=== PATIENT | female | born 1955 | race Caucasian/White ===

== ENCOUNTER 2017-10-23 17:04 | Observation (INO) | payer MEDICARE, OTHER ==
[~2017-10-23] VITALS: Ht 162.6 cm; Wt 50.0 kg
[2017-10-23 17:07] VITALS: BP 130/73; PULSE 81; RESP 13; TEMP 98.4; O2SAT 97
[2017-10-23 17:43] LABS: AUTOMATED NEUTROPHIL # 4.1 TH/MM3 (1.8-7.7); BASOPHIL % 0.6 % (0.0-2.0); EOSINOPHIL # 0.1 TH/MM3 (0-0.4); EOSINOPHIL % 2.1 % (0.0-4.0); HEMATOCRIT 32.3 % (35.0-46.0); HEMOGLOBIN 10.6 GM/DL (11.6-15.3); LYMPH % 18.9 % (9.0-44.0); LYMPHOCYTE # 1.1 TH/MM3 (1.0-4.8); MEAN CELL VOLUME 86.7 FL (80.0-100.0); MEAN CORPUSCULAR HEMOGLOBIN 28.4 PG (27.0-34.0); MEAN CORPUSCULAR HGB CONC 32.7 % (32.0-36.0); MEAN PLATELET VOLUME 9.5 FL (7.0-11.0); MONO % 9.9 % (0.0-8.0); MONOCYTE # 0.6 TH/MM3 (0-0.9); NEUT % 68.5 % (16.0-70.0); PLATELET COUNT 161 TH/MM3 (150-450); RED BLOOD COUNT 3.72 MIL/MM3 (4.00-5.30); RED CELL DISTRIBUTION WIDTH 16.1 % (11.6-17.2)
[2017-10-23 17:57] LABS: PROTHROMBIN TIME - PATIENT 10.4 SEC (9.8-11.6)
[2017-10-23 18:02] LABS: ALBUMIN 3.3 GM/DL (3.4-5.0); ALT (GPT) 33 U/L (10-53); AST (GOT) 24 U/L (15-37); BICARBONATE 25.7 MEQ/L (21.0-32.0); BLOOD UREA NITROGEN 22 MG/DL (7-18); CALCIUM 9.4 MG/DL (8.5-10.1); CHLORIDE 94 MEQ/L (98-107); CREATININE 0.64 MG/DL (0.50-1.00); GLOMERULAR FILTRATION RATE 94 ML/MIN (>89); GLUCOSE,RANDOM 99 MG/DL (74-106); MAGNESIUM 1.9 MG/DL (1.5-2.5); SODIUM (NA) 128 MEQ/L (136-145)
[2017-10-23 18:06] LABS: ALKALINE PHOSPHATASE 129 U/L (45-117); TOTAL BILIRUBIN ADULT 0.2 MG/DL (0.2-1.0); TOTAL PROTEIN 7.4 GM/DL (6.4-8.2); TROPONIN I LESS THAN 0.02 NG/ML (0.02-0.05)
[2017-10-23] MEDS ORDERED: TRAZ1TAB14 G-TUBE (18:10)
[2017-10-23] MEDS ORDERED: ZOFR4TAB PO (18:10)
[2017-10-23] MEDS ORDERED: LACT10SO5 PO (18:10)
[2017-10-23] MEDS ORDERED: NOVOLOGP2 SQ (18:10)
[2017-10-23] MEDS ORDERED: QUES4POW PO (18:10)
[2017-10-23] MEDS ORDERED: ROPI.5 PO (18:10)
[2017-10-23] MEDS ORDERED: NUED20CA PO (18:10)
[2017-10-23] MEDS ORDERED: VANC500I3 PO (18:10)
[2017-10-23] MEDS ORDERED: CHOL5000 PO (18:10)
[2017-10-23] MEDS ORDERED: ZANT150T2 PO (18:10)
[2017-10-23] MEDS ORDERED: RISP0.5T25 PO (18:10)
[2017-10-23] MEDS ORDERED: ASPI81TA16 PO (18:10)
[2017-10-23] MEDS ORDERED: TRAM50 PO (18:10)
[2017-10-23] MEDS ORDERED: LEVEMIR SQ (18:10)
[2017-10-23] MEDS ORDERED: MOBI7.5T PO (18:10)
[2017-10-23] MEDS ORDERED: LEVO.05 PO (18:10)
[2017-10-23] MEDS ORDERED: VENTAER INH (18:10)
[2017-10-23] MEDS ORDERED: NAME10TA PO (18:10)
--- NOTE | 2017-10-23 18:50 | RADRPT ---
EXAM DATE: 10/23/2017 5:53 PM EDT AGE/SEX: 61 years / Female INDICATIONS: Chest pain. CLINICAL DATA: This is the patient's initial encounter. Patient reports that signs and symptoms have been present for 1 day and indicates a pain score of 1/10. MEDICAL/SURGICAL HISTORY: None. None. COMPARISON: No prior exams available for comparison. FINDINGS: There is apical pleural thickening, worse on the left. Also upper lobe airspace disease on the left m edially of uncertain age. No effusion. Tortuous aorta. Previous left humeral prosthesis. CONCLUSION: Apical pleural thickening, left greater than right with some upper lobe airspace disease on the left Electronically signed by: Teodoro Young MD 10/23/2017 6:48 PM EDT
[2017-10-23 19:19] VITALS: BP 137/75; PULSE 71; RESP 16; O2SAT 98
--- NOTE | 2017-10-23 19:19 | PD ---
HPI Chief Complaint: Chest Pain Time Seen by Provider: 17:07 Travel History International Travel<30 days: No Contact w/Intl Traveler<30days: No Traveled to known affect area: No History of Present Illness HPI 61-year-old patient with history of diabetes, dementia, coming from the sn[place], she states that she is having left parasternal chest pains. She denies any shortness of breath, coughing, fevers, or other symptoms. She states is an 8 out of 10. However, she may not be a reliable historian, it is not clear. Modifying Factors: None Associated Signs & Symptoms: Chest pain Risk Factors: Diabetes PFSH Past Medical History Diabetes: Yes Patient Takes Glucophage: Yes (10/23/17) Diminished Hearing: No Influenza Vaccination: No ?: Not Past Surgical History Surgical History: No Previous Surgery Social History Alcohol Use: Yes (OCCASIONAL) Tobacco Use: No Substance Use: No Allergies-Medications (Allergen,Severity, Reaction): Coded Allergies: MRI PRECAUTION (Verified Allergy, Unknown, 10/23/17) ibandronate sodium (Verified Allergy, Unknown, 10/23/17) metformin (Verified Allergy, Unknown, 10/23/17) sitagliptin (Verified Allergy, Unknown, 10/23/17) Reported Meds & Prescriptions Reported Meds & Active Scripts Active Reported Novolog Inj (Insulin Aspart) 1,000 Unit/10 Ml Vial 0 SQ ACHS Sliding Scale as directed. IF 150-200=2 units, 201-250=4 units, 351-300=6 units, 301-350=8 units, 351-400=10 units, 401-450=12 units, 451-499=16 units, >500=Call Ultram (Tramadol HCl) 50 Mg Tab 50 Mg PO Q8H PRN Zofran (Ondansetron HCl) 4 Mg Tab 4 Mg PO Q4HR PRN Ventolin Hfa 18 GM Inh (Albuterol Sulfate) 90 Mcg/Act Aer 2 Puff INH Q4H PRN Questran Light (Cholestyramine Light) 4 Gm/Dose Powd 4 Gm PO DAILY PRN 1 level scoopful of powder contains 4 gm of cholestyramine. Vancomycin Inj (Vancomycin HCl) 500 Mg Inj 125 Mg PO QID 20 Days Nuedexta 20-10 mg (Dextromethorphan HBr-Quinidine) 20 Mg-10 Mg Cap 1 Cap PO BID Levemir Inj (Insulin Detemir) 1,000 unit/ 10 ML Vial 10 Units SQ BID Do not mix with any other Insulin. Requip (Ropinirole HCl) 0.5 Mg Tab 0.5 Mg PO Q8HR Hold for lethargy Risperdal (Risperidone) 0.5 Mg Tab 0.5 Mg PO BID Namenda (Memantine) 10 Mg Tab 10 Mg PO BID Trazodone (Trazodone HCl) 150 Mg Tablet 75 Mg G-TUBE HS Vitamin D3 (Cholecalciferol) 5,000 Unit Cap 5,000 Units PO DAILY Mobic (Meloxicam) 7.5 Mg Tab 7.5 Mg PO DAILY Lactulose 10 Gram/15 Ml (15 Ml) Solution 30 Ml PO DAILY Aspirin Adult Low Strength (Aspirin) 81 Mg Tabdr 81 Mg PO DAILY Synthroid (Levothyroxine Sodium) 50 Mcg Tab 50 Mcg PO DAILY Zantac (Ranitidine HCl) 150 Mg Tab 150 Mg PO DAILY Review of Systems Except as stated in HPI: all other systems reviewed are Neg Physical Exam Narrative GENERAL: Well-developed elderly female patient currently in mild distress. Awake and oriented 3. SKIN: Focused skin assessment warm/dry. HEAD: Atraumatic. Normocephalic. EYES: Pupils equal and round. No scleral icterus. No injection or drainage. ENT: No nasal bleeding or discharge. Mucous membranes pink and moist. NECK: Trachea midline. No JVD. Supple. CARDIOVASCULAR: Regular rate and rhythm. No murmur appreciated. RESPIRATORY: No accessory muscle use. Clear to auscultation. Breath sounds equal bilaterally. GASTROINTESTINAL: Abdomen soft, non-tender, nondistended. Hepatic and splenic margins not palpable. MUSCULOSKELETAL: No obvious deformities. No clubbing. No cyanosis. No edema. NEUROLOGICAL: Awake and alert. No obvious cranial nerve deficits. Motor grossly within normal limits. Normal speech. PSYCHIATRIC: Appropriate mood and affect; insight and judgment normal. Data Data Last Documented VS Vital Signs Date Time Temp Pulse Resp B/P (MAP) Pulse Ox O2 Delivery O2 Flow Rate FiO2 10/23/17 19:19 71 16 137/75 (95) 98 Room Air 10/23/17 17:07 98.4 Orders Orders Electrocardiogram (10/23/17 17:07) Ckmb (Isoenzyme) Profile (10/23/17 17:07) Complete Blood Count With Diff (10/23/17 17:07) Comprehensive Metabolic Panel (10/23/17 17:07) Magnesium (Mg) (10/23/17 17:07) Prothrombin Time / Inr (Pt) (10/23/17 17:07) Act Partial Throm Time (Ptt) (10/23/17 17:07) Troponin I (10/23/17 17:07) Lipase (10/23/17 17:07) Ecg Monitoring (10/23/17 17:07) Bilateral Bp Monitoring (10/23/17 17:07) Iv Access Insert/Monitor (10/23/17 17:07) Oximetry (10/23/17 17:07) Oxygen Administration (10/23/17 17:07) Chest, Pa & Lat (10/23/17 17:07) Blood Culture (10/23/17 19:12) Sodium Chlorid 0.9% 500 Ml Inj (Ns 500 M (10/23/17 19:30) Labs Laboratory Tests Test 10/23/17 17:30 White Blood Count 6.0 TH/MM3 Red Blood Count 3.72 MIL/MM3 Hemoglobin 10.6 GM/DL Hematocrit 32.3 % Mean Corpuscular Volume 86.7 FL Mean Corpuscular Hemoglobin 28.4 PG Mean Corpuscular Hemoglobin Concent 32.7 % Red Cell Distribution Width 16.1 % Platelet Count 161 TH/MM3 Mean Platelet Volume 9.5 FL Neutrophils (%) (Auto) 68.5 % Lymphocytes (%) (Auto) 18.9 % Monocytes (%) (Auto) 9.9 % Eosinophils (%) (Auto) 2.1 % Basophils (%) (Auto) 0.6 % Neutrophils # (Auto) 4.1 TH/MM3 Lymphocytes # (Auto) 1.1 TH/MM3 Monocytes # (Auto) 0.6 TH/MM3 Eosinophils # (Auto) 0.1 TH/MM3 Basophils # (Auto) 0.0 TH/MM3 CBC Comment DIFF FINAL Differential Comment Prothrombin Time 10.4 SEC Prothromb Time International Ratio 1.0 RATIO Activated Partial Thromboplast Time 24.3 SEC Blood Urea Nitrogen 22 MG/DL Creatinine 0.64 MG/DL Random Glucose 99 MG/DL Total Protein 7.4 GM/DL Albumin 3.3 GM/DL Calcium Level 9.4 MG/DL Magnesium Level 1.9 MG/DL Alkaline Phosphatase 129 U/L Aspartate Amino Transf (AST/SGOT) 24 U/L Alanine Aminotransferase (ALT/SGPT) 33 U/L Total Bilirubin 0.2 MG/DL Sodium Level 128 MEQ/L Potassium Level 5.2 MEQ/L Chloride Level 94 MEQ/L Carbon Dioxide Level 25.7 MEQ/L Anion Gap 8 MEQ/L Estimat Glomerular Filtration Rate 94 ML/MIN Total Creatine Kinase 38 U/L Troponin I LESS THAN 0.02 NG/ML Lipase 59 U/L MDM Medical Decision Making Medical Screen Exam Complete: Yes Emergency Medical Condition: Yes Medical Record Reviewed: Yes Interpretation(s) EKG shows normal sinus rhythm at a rate of 69 bpm with no signs of acute ST elevations or depressions. Laboratory Tests Test 10/23/17 17:30 Red Blood Count 3.72 MIL/MM3 (4.00-5.30) Hemoglobin 10.6 GM/DL (11.6-15.3) Hematocrit 32.3 % (35.0-46.0) Monocytes (%) (Auto) 9.9 % (0.0-8.0) Blood Urea Nitrogen 22 MG/DL (7-18) Albumin 3.3 GM/DL (3.4-5.0) Alkaline Phosphatase 129 U/L (45-117) Sodium Level 128 MEQ/L (136-145) Potassium Level 5.2 MEQ/L (3.5-5.1) Chloride Level 94 MEQ/L (98-107) Troponin I LESS THAN 0.02 NG/ML Lipase 59 U/L (73-393) Last 24 hours Impressions Chest X-Ray 10/23/17 1707 Signed Impressions: CONCLUSION: Apical pleural thickening, left greater than right with some upper lobe airspac e disease on the left Differential Diagnosis Chest pains: ACS versus pneumonia versus costochondritis Narrative Course EKG did not show any signs of acute ST changes. Cardiac enzymes are negative. Lab work did show a hyponatremia and mild hyperkalemia. At this point, my plan would be to admit her to family practice resident service for chest pains. Diagnosis Primary Impression: Chest pain Admitting Information Admitting Physician Requests: Admit Oliver Soliman MD Oct 23, 2017 19:18
[2017-10-23] MEDS ORDERED: SODIUM CHLORID 0.9% 500 ML INJ 500 ML IV ONE (19:30)
--- NOTE | 2017-10-23 19:37 | HHI.HP ---
HPI Service Family Medicine Primary Care Physician Marc Valencia MD Admission Diagnosis Chest pain Diagnoses: International Travel<30 Days: No Contact w/Intl Traveler<30days: No Known Affected Area: No History of Present Illness Mrs. Ramires is a 61 y/o F presenting to the ED from [facility] for chest pain. She is not accompanied by a emergency care tech and does have baseline dementia. She is able to report a limited history. However, she is unable to report her medical history or daily medications. She states that last night, 10/22/17, she awoke from sleep with 7/10 chest pain. She described the pain as "pumping" that was focally located in the L side of her chest. The pain did radiate down her L arm, but not up her neck. She states the pain caused her to become short of breath with diaphoresis, but denied any N /V. She reports no history of CAD, FL, or cardiac surgery. Otherwise she is not able to report any other specific history. On ROS, she answers nearly martins- positive to all questions all of which are answered with "a little bit." Per her [facility] Nursing ([phone] ext [phone]), patient is wheelchair bound at baseline. She is always alert, but is intermittently oriented. However, staff does report that patient tends to be "med seeking" despite being on daily tramadol treatment for chronic pain. Per discussion with nurse from last night (10/22/17), patient slept throughout the entire night without complaints. Nursing staff goes on to report that patient had no complaints during the day, however once manufacturing supervisor 2nd shift came on service she was reporting the chest pain for the first time. They report no recent trauma or other event causing acute pain. (Christiano Olivas MD R2) Review of Systems ROS Limitations: Clinical Condition, Poor Historian Constitutional: COMPLAINS OF: Fever, Chills Eyes: COMPLAINS OF: Blurred vision, DENIES: Double Vision Ears, nose, mouth, throat: COMPLAINS OF: Throat pain, Running Nose Respiratory: COMPLAINS OF: Shortness of breath, DENIES: Cough Cardiovascular: COMPLAINS OF: Chest pain, Palpitations Gastrointestinal: COMPLAINS OF: Abdominal pain, Diarrhea, Nausea, Vomiting Genitourinary: COMPLAINS OF: Dysuria, DENIES: Hematuria Musculoskeletal: COMPLAINS OF: Joint pain, Muscle aches Hematologic/lymphatic: DENIES: Lymphadenopathy Immunologic/allergic: DENIES: Urticaria Neurologic: COMPLAINS OF: Headache Psychiatric: DENIES: Mood changes (Christiano Olivas MD R2) Past Family Social History Past Medical History Patient is unable to move provide past medical, past surgical, family, or social history at this time. Per [facility] Medication List: DM Hypothyroidism GERD Chronic Pain C. difficile colitis [facility] Nursing Staff Reports ([phone] ext [phone]) Dementia with Behavioral disturbances Anxiety/Depression Alcohol Abuse Cirrhosis Medication Seeking Behavior (Christiano Olivas MD R2) Allergies: Coded Allergies: MRI PRECAUTION (Verified Allergy, Unknown, 10/23/17) ibandronate sodium (Verified Allergy, Unknown, 10/23/17) metformin (Verified Allergy, Unknown, 10/23/17) sitagliptin (Verified Allergy, Unknown, 10/23/17) Physical Exam Vital Signs Vital Signs Date Time Temp Pulse Resp B/P (MAP) Pulse Ox O2 Delivery O2 Flow Rate FiO2 10/23/17 19:19 71 16 137/75 (95) 98 Room Air 10/23/17 17:16 98 Room Air 10/23/17 17:11 Room Air 10/23/17 17:07 98.4 81 13 130/73 (92) 97 Physical Exam GENERAL: Elderly, frail female appearing older than stated age lying in bed in no acute distress. SKIN: Warm and dry. No rash. HEENT: Atraumatic, normocephalic with extraocular motions intact. Oropharynx clear without erythema or exudate. No rhinorrhea. No palpable LAD, JVD, or thyroid abnormality appreciated. Possible tracheotomy scars appear well-healed. CARDIOVASCULAR: Regular rate and rhythm without obvious murmurs, gallops, or rubs. 2+ pulses in all four extremities. Patient tender to palpation along the sternum. RESPIRATORY: Clear to auscultation bilaterally with no crackles, wheezes, or rhonchi. No increased work of breathing on room air. GASTROINTESTINAL: Abdomen soft, non-tender, nondistended with positive bowel sounds. PEG tube in place surrounded by CDI bandaging without surrounding erythema or drainage. No masses appreciated. MUSCULOSKELETAL: No cyanosis or edema. No calf tenderness. Patient wheelchair- bound per report NEURO/PSYCH: Afocal. Awake, alert, and oriented x2. Patient reports that it is the year 1962, she is currently at home, and that the president is Hugo. She is able to report her full name. Speech is soft and slow. Poor focus constantly redirecting discussion to "hurting all over." No asterixis on exam. Laboratory Laboratory Tests Test 10/23/17 17:30 White Blood Count 6.0 Red Blood Count 3.72 Hemoglobin 10.6 Hematocrit 32.3 Mean Corpuscular Volume 86.7 Mean Corpuscular Hemoglobin 28.4 Mean Corpuscular Hemoglobin Concent 32.7 Red Cell Distribution Width 16.1 Platelet Count 161 Mean Platelet Volume 9.5 Neutrophils (%) (Auto) 68.5 Lymphocytes (%) (Auto) 18.9 Monocytes (%) (Auto) 9.9 Eosinophils (%) (Auto) 2.1 Basophils (%) (Auto) 0.6 Neutrophils # (Auto) 4.1 Lymphocytes # (Auto) 1.1 Monocytes # (Auto) 0.6 Eosinophils # (Auto) 0.1 Basophils # (Auto) 0.0 CBC Comment DIFF FINAL Differential Comment Prothrombin Time 10.4 Prothromb Time International Ratio 1.0 Activated Partial Thromboplast Time 24.3 Blood Urea Nitrogen 22 Creatinine 0.64 Random Glucose 99 Total Protein 7.4 Albumin 3.3 Calcium Level 9.4 Magnesium Level 1.9 Alkaline Phosphatase 129 Aspartate Amino Transf (AST/SGOT) 24 Alanine Aminotransferase (ALT/SGPT) 33 Total Bilirubin 0.2 Sodium Level 128 Potassium Level 5.2 Chloride Level 94 Carbon Dioxide Level 25.7 Anion Gap 8 Estimat Glomerular Filtration Rate 94 Total Creatine Kinase 38 Troponin I LESS THAN 0.02 Lipase 59 (Christiano Olivas MD R2) Result Diagram: 10/23/17 1730 10/23/17 1730 Imaging Last 72 hours Impressions Chest X-Ray 10/23/17 1707 Signed Impressions: CONCLUSION: Apical pleural thickening, left greater than right with some upper lobe airspac e disease on the left (Christiano Olivas MD R2) Caprini VTE Risk Assessment Caprini VTE Risk Assessment: Mod/High Risk (score >= 2) Caprini Risk Assessment Model Point Value = 1 Point Value = 2 Point Value = 3 Point Value = 5 Age 41-60 Minor surgery BMI > 25 kg/m2 Swollen legs Varicose veins or History of unexplained or recurrent spontaneous Oral contraceptives or hormone replacement Sepsis (< 1 month) Serious lung disease, including pneumonia (< 1 month) Abnormal pulmonary function Acute myocardial infarction Congestive heart failure (< 1 month) History of inflammatory bowel disease Medical patient at bed rest Age 61-74 Arthroscopic surgery Major open surgery (> 45 min) Laparoscopic surgery (> 45 min) Malignancy Confined to bed (> 72 hours) Immobilizing plaster cast Central venous access Age >= 75 History of VTE Family history of VTE Factor V Leiden Prothrombin [id number] Lupus anticoagulant Anticardiolipin antibodies Elevated serum homocysteine Heparin-induced thrombocytopenia Other congenital or acquired thrombophilia Stroke (< 1 month) Elective arthroplasty Hip, pelvis, or leg fracture Acute spinal cord injury (< 1 month) Prophylaxis Regimen Total Risk Factor Score Risk Level Prophylaxis Regimen 0-1 Low Early ambulation 2 Moderate Order ONE of the following: *Sequential Compression Device (SCD) *Heparin 5000 units SQ BID 3-4 Higher Order ONE of the following medications: *Heparin 5000 units SQ TID *Enoxaparin/Lovenox 40 mg SQ daily (WT < 150 kg, CrCl > 30 mL/min) *Enoxaparin/Lovenox 30 mg SQ daily (WT < 150 kg, CrCl > 10-29 mL/min) *Enoxaparin/Lovenox 30 mg SQ BID (WT < 150 kg, CrCl > 30 mL/min) AND/OR *Sequential Compression Device (SCD) 5 or more Highest Order ONE of the following medications: *Heparin 5000 units SQ TID (Preferred with Epidurals) *Enoxaparin/Lovenox 40 mg SQ daily (WT < 150 kg, CrCl > 30 mL/min) *Enoxaparin/Lovenox 30 mg SQ daily (WT < 150 kg, CrCl > 10-29 mL/min) *Enoxaparin/Lovenox 30 mg SQ BID (WT < 150 kg, CrCl > 30 mL/min) AND *Sequential Compression Device (SCD) (Christiano Olivas MD R2) Assessment and Plan Assessment and Plan Mrs. Ramires is a 61-year-old female presenting to the ED with acute chest pain admitted for ACS rule out. Code Status Full code as patient is unable to provide CODE STATUS. Discussed Condition With Dr. Janny ED MD (Christiano Olivas MD R2) Attending Attestation THIS CASE WAS DISCUSSED WITH THE RESIDENT PHYSICIAN. I HAVE REVIEWED THE RECORD AND AGREE WITH THE ABOVE NOTE AND PLAN OF CARE WAS DISCUSSED. I HAVE AUTHORIZED THE ORDER FOR PLACEMENT IN OUT-PATIENT OBSERVATION STATUS. (Nida Montenegro MD) Problem List: (1) Chest pain ICD Codes: R07.9 - Chest pain, unspecified Status: Acute Plan: -EKG showed sinus rhythm with a rate of 69 bpm. No interval abnormalities. No acute ST elevation/depression. (Per medical team read) -CXR showed apical pleural thickening, left greater than right, with some upper lobe airspace disease on the left. -Initial Trop less than 0.02. Trend Latoya and EKGs x 2. If 2nd trop. is sig. increased, notify cardology and possibly start Heparin drip. -Supplemental O2. Daily aspirin. -Morphine 2mg Q2 hrs PRN chest pain only. -Metoprolol 25 PO BID fidencio (hold for low BP and HR). -NTG PRN as no evidence of pump failure/hypoperfusion at this time. -Tele. -NPO for now in case of PCI. -Tylenol as needed for positional chest pain -AM BMP + Mg to detect/correct electrolyte abnormalities that could lower arrhythmia threshold. (2) Hyponatremia ICD Codes: E87.1 - Hypo-osmolality and hyponatremia Status: Acute Plan: Patient presenting with no acute neural abnormalities found to have hyponatremia. -CMP: Sodium 128 -Repeat CMP in a.m. -Decrease PEG tube flushes to 30 mL with each feed (baseline at 60 mL per feed) -Plan to further fluid restrict without correction -If sodium does not normalize with monitoring, plan for nutrition consult to assist with electrolyte abnormalities (3) Hyperkalemia ICD Codes: E87.5 - Hyperkalemia Status: Acute Plan: Patient presenting with mild hyperkalemia without acute muscle weakness or EKG changes. As patient is not presenting and hyperkalemic emergency, plan to lower potassium slowly -CMP: Potassium 5.2 -EKG as above, trend 2 -Repeat potassium ordered -Repeat CMP in a.m. -Sliding scale insulin per protocol -If potassium does not normalize with monitoring, plan for nutrition consult to assist with electrolyte abnormalities (4) C. difficile colitis ICD Codes: A04.72 - Enterocolitis due to Clostridium difficile, not specified as recurrent Status: Acute Plan: Patient with recent C. difficile colitis diagnosis per nursing report. Patient was prescribed vancomycin 4 times a day for 20 days. -CBC: WBC 6.0 with 68.5% neutrophils -Isolation ordered Medications: -Per nursing staff at [facility], patient has completed her 20 day treatment -Discontinue oral vancomycin at this time (5) Diabetes mellitus ICD Codes: E11.9 - Type 2 diabetes mellitus without complications Status: Acute Plan: Patient with history of type 2 diabetes mellitus currently controlled per [facility] nursing staff -CMP: Glucose 99 Medications: -Hold home insulin -Low-dose sliding scale per protocol (6) GERD (gastroesophageal reflux disease) ICD Codes: K21.9 - Gastro-esophageal reflux disease without esophagitis Status: Acute Plan: Patient with history of GERD Medications: -Ranitidine 150 mg daily -Zofran as needed for nausea/vomiting (7) Hypothyroidism ICD Codes: E03.9 - Hypothyroidism, unspecified Status: Acute Plan: Patient with history of hypothyroidism Medications: -Continue levothyroxine 50 mcg daily (8) Chronic pain ICD Codes: G89.29 - Other chronic pain Status: Chronic Plan: Patient with chronic pain. Nursing staff at [facility] also reports medication seeking behaviors. Medications: -Hold Mobic due to acute chest pain -Continue tramadol -Attempt to avoid increasing pain medications at this time (9) Dementia with behavioral disturbance ICD Codes: F03.91 - Unspecified dementia with behavioral disturbance Status: Chronic Plan: Patient with reported dementia as well as behavioral disturbances Medications: -Continue home trazodone, Risperdal, Requip, Nuedexta, and Namenda (10) Cirrhosis ICD Codes: K74.60 - Unspecified cirrhosis of liver Status: Chronic Plan: Patient with a history of alcoholic cirrhosis -CMP: Hyponatremia as above, liver function within normal limits -Ammonia: Pending Medications: -Hold lactulose at this time (11) Nutrition, metabolism, and development symptoms ICD Codes: R63.8 - Other symptoms and signs concerning food and fluid intake Status: Acute Plan: -Fluid: Fluid restricted as patient is hyponatremic, patient appears well -hydrated at this time -Diet: Patient is n.p.o. but receives tube feeds via PEG tube. Continued at normal rate with decreased flushes due to hyponatremia. -Electrolytes: Hypo-natremia, hyperkalemia; continue to monitor -Prophylaxis: Duo nebs as needed for shortness of breath, ranitidine for GERD, Tylenol as needed for pain, Zofran as needed for nausea/vomiting, nitro/ morphine as needed for chest pain, incentive spirometry -PT ordered (12) DVT prophylaxis Status: Acute Plan: -SCDs Medications: -Heparin 5000 units every 8 hours (Christiano Olivas MD R2) Problem Qualifiers (1) Chest pain: Qualified Codes: R07.9 - Chest pain, unspecified (2) Diabetes mellitus: (3) GERD (gastroesophageal reflux disease): Qualified Codes: K21.9 - Gastro-esophageal reflux disease without esophagitis (4) Hypothyroidism: Qualified Codes: E03.9 - Hypothyroidism, unspecified (5) Chronic pain: Qualified Codes: G89.29 - Other chronic pain (6) Dementia with behavioral disturbance: (7) Cirrhosis: Qualified Codes: K70.30 - Alcoholic cirrhosis of liver without ascites Christiano Olivas MD R2 Oct 23, 2017 19:37 Nida Montenegro MD Oct 24, 2017 13:36
[2017-10-23] MEDS ORDERED: SODIUM CHLORIDE 0.9% FLUSH 10 ML FLUSH IV FLUSH PRN (19:45)
[2017-10-23] MEDS ORDERED: ONDANSETRON HCL 4 MG/2 ML VIAL IV PUSH PRN (19:45)
[2017-10-23] MEDS ORDERED: RESP: ALBUTEROL 2.5 MG/IPRATROPIUM 0.5 MG NEB (PRN) NEB (19:45)
[2017-10-23] MEDS ORDERED: MORPHINE SULFATE 4 MG/ML INJ IV PUSH PRN (19:45)
[2017-10-23] MEDS ORDERED: ACETAMINOPHEN 325 MG TAB PO PRN (19:45)
[2017-10-23] MEDS ORDERED: NITROGLYCERIN 0.4 MG SL 25 TABS/BTL SL PRN (19:45)
[2017-10-23 19:50] VITALS: O2SAT 98
[2017-10-23] MEDS ORDERED: NUTR1LIQ PEG (20:40)
[2017-10-23] MEDS ORDERED: [UNRECOGNIZED DRUG - OTHER] PEG (20:40)
[2017-10-23 22:09] VITALS: BP 134/68; PULSE 72; RESP 16; TEMP 98.1; O2SAT 98
[2017-10-23] MEDS: SODIUM CHLORIDE 0.9% FLUSH 10 ML FLUSH IV FLUSH SCH (22:19)
[2017-10-23 22:30] VITALS: PULSE 73
[2017-10-23] MEDS ORDERED: ALBUTEROL SULFATE 90 MCG/ACT HFA 8 GM INHALER INH PRN (22:30)
[2017-10-23] MEDS ORDERED: traZODone HCL 50 MG TAB G-TUBE SCH (22:30)
[2017-10-23] MEDS ORDERED: traMADol HCL 50 MG TAB PO PRN (22:30)
[2017-10-23] MEDS ORDERED: DEXTROMETHORPHAN HBR QUINIDINE PO SCH (22:30)
[2017-10-23] MEDS ORDERED: ONDANSETRON ODT 4 MG TAB PO PRN (22:30)
[2017-10-23] MEDS ORDERED: CHOLESTYRAMINE LIGHT 4 GM PACKAGE PO PRN (22:30)
[2017-10-23] MEDS ORDERED: VANCOMYCIN 500 MG VIAL (FOR ORAL USE ONLY) PO SCH (23:30)
[2017-10-23 23:41] LABS: CHOLESTEROL 167 MG/DL (120-200); PHOSPHORUS 2.9 MG/DL (2.5-4.9); TRIGLYCERIDES 91 MG/DL (42-150)
[2017-10-23 23:54] LABS: CHOLESTEROL/ HDL RATIO 2.29 RATIO; HDL CHOLESTEROL 72.7 MG/DL (40.0-60.0); LDL CHOLESTEROL 76 MG/DL (0-99); TROPONIN I LESS THAN 0.02 NG/ML (0.02-0.05)
[2017-10-23] MEDS: MEMANTINE HCL 10 MG TAB PO SCH (23:57)
[2017-10-23] MEDS: risperiDONE 0.5 MG TAB PO SCH (23:59)
[2017-10-24] VITALS (7 sets, daily range): BP systolic 110–141; BP diastolic 55–72; PULSE 69–76; RESP 16–17; TEMP 98–98.7; O2SAT 96–100
[2017-10-24] MEDS ORDERED: GLUCAGON 1 MG/ML VIAL OTHER PRN (00:30)
[2017-10-24] MEDS ORDERED: DEXTROSE 50% IN WATER 50 ML VIAL(D50) IV PUSH PRN (00:30)
[2017-10-24 02:13] LABS: MAGNESIUM 1.7 MG/DL (1.5-2.5)
[2017-10-24] MEDS: HEPARIN SODIUM - SQ 10,000 UNITS/ML VIAL SQ SCH ×2 (02:29→11:20)
[2017-10-24] MEDS ORDERED: [UNRECOGNIZED DRUG - OTHER] PEG SCH (06:00)
[2017-10-24] MEDS ORDERED: LACTOSE REDUCED FOOD PEG SCH (06:00)
[2017-10-24] MEDS ORDERED: LEVOTHYROXINE SODIUM 50 MCG TAB PO SCH (06:00)
[2017-10-24] MEDS ORDERED: FIBER PEG SCH (06:00)
[2017-10-24 06:40] LABS: AUTOMATED NEUTROPHIL # 3.7 TH/MM3 (1.8-7.7); BASOPHIL % 0.8 % (0.0-2.0); EOSINOPHIL # 0.1 TH/MM3 (0-0.4); EOSINOPHIL % 1.8 % (0.0-4.0); HEMOGLOBIN 10.3 GM/DL (11.6-15.3); LYMPH % 20.9 % (9.0-44.0); LYMPHOCYTE # 1.1 TH/MM3 (1.0-4.8); MEAN CELL VOLUME 85.4 FL (80.0-100.0); MEAN CORPUSCULAR HEMOGLOBIN 28.4 PG (27.0-34.0); MEAN CORPUSCULAR HGB CONC 33.3 % (32.0-36.0); MEAN PLATELET VOLUME 8.7 FL (7.0-11.0); MONO % 9.3 % (0.0-8.0); MONOCYTE # 0.5 TH/MM3 (0-0.9); NEUT % 67.2 % (16.0-70.0); PLATELET COUNT 156 TH/MM3 (150-450); RED BLOOD COUNT 3.63 MIL/MM3 (4.00-5.30); RED CELL DISTRIBUTION WIDTH 16.2 % (11.6-17.2); WHITE BLOOD COUNT 5.5 TH/MM3 (4.0-11.0)
[2017-10-24 06:55] LABS: BICARBONATE 24.1 MEQ/L (21.0-32.0); BLOOD UREA NITROGEN 17 MG/DL (7-18); CALCIUM 9.5 MG/DL (8.5-10.1); CHLORIDE 99 MEQ/L (98-107); CREATININE 0.56 MG/DL (0.50-1.00); GLOMERULAR FILTRATION RATE 109 ML/MIN (>89); GLUCOSE,RANDOM 64 MG/DL (74-106); SODIUM (NA) 133 MEQ/L (136-145)
[2017-10-24 06:59] LABS: TROPONIN I LESS THAN 0.02 NG/ML (0.02-0.05)
[2017-10-24] MEDS ORDERED: [UNRECOGNIZED DRUG - REMARK] PEG SCH (08:00)
[2017-10-24] MEDS ORDERED: [UNRECOGNIZED DRUG - REMARK] PEG SCH (08:00)
[2017-10-24] MEDS: INSULIN ASPART SUPPLEMENTAL SCALE SQ SCH ×2 (08:33→12:00)
[2017-10-24] MEDS ORDERED: FAMOTIDINE 20 MG TAB PO SCH (09:00)
[2017-10-24] MEDS ORDERED: ASPIRIN EC 81 MG TABEC PO SCH (09:00)
[2017-10-24] MEDS ORDERED: CHOLECALCIFEROL (VIT D3) 5000 UNIT CAP PO SCH (09:00)
[2017-10-24] MEDS: SODIUM CHLORIDE 0.9% FLUSH 10 ML FLUSH IV FLUSH SCH (11:19)
[2017-10-24] MEDS: risperiDONE 0.5 MG TAB PO SCH (11:20)
[2017-10-24] MEDS: MEMANTINE HCL 10 MG TAB PO SCH (11:20)
[2017-10-24] MEDS ORDERED: ACET325T15 PO (12:48)
--- NOTE | 2017-10-24 12:50 | HHI.DCPOC ---
Discharge Care Plan Diagnosis: (1) Chest pain Goals to Promote Your Health * To prevent worsening of your condition and complications * To maintain your health at the optimal level Directions to Meet Your Goals Take your medications as prescribed Follow your dietary instruction Follow activity as directed Keep your appointments as scheduled Take your immunizations and boosters as scheduled If your symptoms worsen call your PCP, if no PCP go to Urgent Care Center or Emergency Room Smoking is Dangerous to Your Health. Avoid second hand smoke Call the 24-hour hour crisis hotline for domestic abuse at Baylee Christensen MD R1 Oct 24, 2017 12:50
--- NOTE | 2017-10-24 13:35 | HHI.FPPN ---
Addendum to progress note ADDENDUM Reason for addendum: Additonal documentation Additional information Please see resident H/P for further documentation of the patient medical history. Patient with multiple medical problems along with underlying dementia likely from ETOH abuse was admitted with complaints of CP to rule out acute coronary syndrome. Troponin and EKG were normal overnight and no issues overnight with this patient. Cardiac enzymes normal, no acute changes on the EKG. Patient reports no issues this morning. Denies complaints of chest pain or SOB. States she has no issues she does have chronic pain all over her body she states from her head to her toes. History is unreliable as the patient is not oriented to person, place or time. Patient lives at a [facility] and is not capable of ADLS/IADLS. [place] reports she is in a wheelchair chronically unclear of why, also has PEG tube due to difficulty in the past but currently takes all meals by mouth. Vital Signs Date Time Temp Pulse Resp B/P (MAP) Pulse Ox O2 Delivery O2 Flow Rate FiO2 10/24/17 12:00 98.7 75 17 141/72 (95) 100 10/24/17 08:10 69 10/24/17 07:22 96 21 10/24/17 07:00 98.6 76 16 131/68 (89) 98 10/24/17 04:31 98.0 73 16 110/55 (73) 97 10/24/17 04:00 70 10/24/17 00:00 76 10/23/17 22:30 73 10/23/17 22:09 98.1 72 16 134/68 (90) 98 10/23/17 20:36 10/23/17 19:50 98 10/23/17 19:19 71 16 137/75 (95) 98 Room Air 10/23/17 17:16 98 Room Air 10/23/17 17:11 Room Air 10/23/17 17:07 98.4 81 13 130/73 (92) 97 Last Impressions Chest X-Ray 10/23/17 1707 Signed Impressions: CONCLUSION: Apical pleural thickening, left greater than right with some upper lobe airspac e disease on the left O. CONSTITUTIONAL/GEN: normally nourished, in NAD, edentulous. EYES: conjunctiva normal, PERRLA, EOMI ENT: Mouth and pharynx normal. NECK: thyroid midline, carotids symmetrical. LUNGS: clear with course breath sounds throughout, no wheezing, no crackles, no rales CARDIOVASCULAR: RR without murmur or gallop. No significant edema. GI/ABD: soft without masses, without organomegaly, peg tube in place site appears clean. : no CVA tenderness NEURO: No focal deficits -- she is moving her arms well, PT in the room when we were there and her strength in all 4 ext was 3-4/5. She is chronically in a wheelchair SKIN: color normal, no rashes noted. HEME/LYMPH: no bruising, petechia or significant adenopathy MUSC: back is normal in appearance. Extremities are normal in appearance. PSYCH/MENTAL STATUS: Awake, alert, not oriented A/P 1. Chest pain -- no sign of acute coronary issue, patient denies CP at this time. Her other medical issues appear to be stable and at her baseline. She will need further monitoring and care as outpatient, resume home meds and transition her care back to the [facility]. Patient was seen and discussed with the resident - Dr. Amparo Montenegro,Nida Sears MD Oct 24, 2017 13:35
--- NOTE | 2017-10-24 23:11 | EKG ---
Date Performed: 10/23/2017 Time Performed: 18:47:55 PTAGE: 61 years EKG: Sinus rhythm POSSIBLE LEFT ATRIAL ENLARGEMENT LEFT ANTERIOR FASCICULAR BLOCK ABNORMAL ECG NO PREVIOUS TRACING DOCTOR: El Porter Interpretating Date/Time 10/24/2017 23:11:19
== END 2017-10-24 14:00 ==
LOC: NEPE 17:04 → NEDA 19:25 → NEPGCP 20:49
PROVIDERS: ADMIT Family Medicine; ATTEND Family Medicine
DX: R07.9 Chest pain, unspecified (principal); F03.91 Unspecified dementia, unspecified severity, with behavioral disturbance; E11.9 Type 2 diabetes mellitus without complications; Z79.4 Long term (current) use of insulin; Z79.899 Other long term (current) drug therapy; E87.5 Hyperkalemia; E87.1 Hypo-osmolality and hyponatremia; R06.02 Shortness of breath; Z99.3 Dependence on wheelchair; G89.29 Other chronic pain; E03.9 Hypothyroidism, unspecified; K21.9 Gastro-esophageal reflux disease without esophagitis; A04.72 Enterocolitis due to Clostridium difficile, not specified as recurrent; F32.9 Major depressive disorder, single episode, unspecified; F41.9 Anxiety disorder, unspecified; K70.30 Alcoholic cirrhosis of liver without ascites; J94.8 Other specified pleural conditions; I44.4 Left anterior fascicular block; F10.10 Alcohol abuse, uncomplicated
CPT/HCPCS: 71046; 80048; 80053; 80061; 82140; 82550; 82552; 82948; 83690; 83735; 84100; 84132; 84443; 84484; 85025; 85610; 85730; 87040; 93005; 94150; 96360; 96372; 97162; 99285; G0378; G8987; G8988; J1644; J7040